=== PATIENT | female | born 1980 | race Caucasian/White ===

== ENCOUNTER 2018-09-30 19:57 | Inpatient (IN) | payer MEDICAID ==
[~2018-09-30] VITALS: Ht 160 cm; Wt 114.0 kg
[2018-09-30] MEDS ORDERED: ONDANSETRON (ODT) 4 MG TAB ODT STA (21:27)
[2018-09-30] MEDS ORDERED: HYDROCODONE/APAP (5/325) TAB PO ONE (21:30)
[2018-10-01] VITALS (18 sets, daily range): BP systolic 116–144; BP diastolic 65–89; PULSE 72–84; RESP 16–24; Ht 160 cm; Wt 114.0 kg
[2018-10-01] MEDS ORDERED: ONDANSETRON 4 MG INJ IV STA (01:51)
[2018-10-01] MEDS ORDERED: morphine 4 MG/ML VIAL IV STA (01:51)
--- NOTE | 2018-10-01 02:43 | ERD ---
ER Documentation Chief Complaint Chief Complaint LEFT SIDED PELVIC PAIN X 1 DAY, NO VAGINAL BLEEDING, HX OF CYSTS HPI 38-year-old female has been history of GERD presents for left sided pelvic pain x1 day. She states there is a history of ovarian cysts. She states that she has 8 out of 10 pain. She took some Tylenol and Motrin at home with only mild relief. She has some nausea. She denies vomiting. Denies diarrhea. She does admit to some dysuria. No prior similar symptoms. She denies fevers or chills. Denies chest pain or shortness of breath. Denies any vaginal bleeding. No other modifying factors noted, no other treatments tried at home. ROS All systems reviewed and are negative except as per history of present illness. Allergies Allergies: Coded Allergies: No Known Allergy (Unverified , 09/30/18) PMhx/Soc Medical and Surgical Hx: pt denies Medical Hx, pt denies Surgical Hx Hx Alcohol Use: No Hx Substance Use: No Hx Tobacco Use: No Smoking Status: Never smoker FmHx Family History: No coronary disease Physical Exam Vitals Vital Signs Date Temp Pulse Resp B/P (MAP) Pulse Ox O2 O2 Flow FiO2 Time Delivery Rate 10/01/18 61 18 135/82 98 Room Air 02:04 (99) 09/30/18 97.0 65 18 151/86 97 20:06 (107) Physical Exam Const: No acute distress Resp: Clear to auscultation bilaterally Cardio: Regular rate and rhythm, no murmurs Abd: Soft, non distended. Normal bowel sounds, no McBurney's point tenderness, no King sign, no rebound or guarding noted, there is left lower quadrant, left pelvic area tenderness to palpation Skin: No petechiae or rashes Back: No midline or flank tenderness Ext: No cyanosis, or edema Neur: Awake and alert Psych: Normal Mood and Affect Result Diagram: 09/30/18213509/30/182135 Results 24 hrs Laboratory Tests Test 09/30/18 21:26 09/30/18 21:27 09/30/18 21:36 POC Beta HCG, Qualitative NEGATIVE Bedside Urine pH (LAB) 7.0 Bedside Urine Protein (LAB) Trace Bedside Urine Glucose (UA) Negative Bedside Urine Ketones (LAB) Negative Bedside Urine Blood Negative Bedside Urine Nitrite (LAB) Negative Bedside Urine Leukocyte Esterase Trace (L White Blood Count 8.4 10^3/ul Red Blood Count 4.34 10^6/ul Hemoglobin 13.1 g/dl Hematocrit 39.0 % Mean Corpuscular Volume 89.9 fl Mean Corpuscular Hemoglobin 30.2 pg Mean Corpuscular 33.6 g/dl Hemoglobin Concent Red Cell Distribution Width 11.9 % Platelet Count 248 10^3/UL Mean Platelet Volume 9.0 fl Immature Granulocytes % 0.400 % Neutrophils % 51.8 % Lymphocytes % 36.2 % Monocytes % 8.7 % Eosinophils % 2.3 % Basophils % 0.6 % Nucleated Red Blood Cells % 0.0 /100WBC Immature Granulocytes # 0.030 10^3/ul Neutrophils # 4.4 10^3/ul Lymphocytes # 3.0 10^3/ul Monocytes # 0.7 10^3/ul Eosinophils # 0.2 10^3/ul Basophils # 0.1 10^3/ul Nucleated Red Blood Cells # 0.0 10^3/ul Urine Color YELLOW Urine Clarity SLIGHTLY CLOUDY Urine pH 6.0 Urine Specific [place] 1.030 Urine Ketones NEGATIVE mg/dL Urine Nitrite NEGATIVE mg/dL Urine Bilirubin NEGATIVE mg/dL Urine Urobilinogen 1+ mg/dL Urine Leukocyte Esterase TRACE Abbi/ul Urine Microscopic RBC 1 /HPF Urine Microscopic WBC 4 /HPF Urine Squamous Epithelial Cells FEW /HPF Urine Bacteria FEW /HPF Urine Hemoglobin NEGATIVE mg/dL Urine Glucose NEGATIVE mg/dL Urine Total Protein NEGATIVE mg/dl Sodium Level 140 mmol/L Potassium Level 3.9 mmol/L Chloride Level 106 mmol/L Carbon Dioxide Level 26 mmol/L Anion Gap 8 Blood Urea Nitrogen 20 mg/dl Creatinine 0.64 mg/dl Est Glomerular Filtrat > 60 mL/min Rate mL/min Glucose Level 104 mg/dl Calcium Level 9.5 mg/dl Total Bilirubin 0.4 mg/dl Direct Bilirubin 0.00 mg/dl Indirect Bilirubin 0.4 mg/dl Aspartate Amino Transf (AST/SGOT) 29 IU/L Alanine 65 IU/L Aminotransferase (ALT/SGPT) Alkaline Phosphatase 73 IU/L Total Protein 7.7 g/dl Albumin 4.2 g/dl Globulin 3.50 g/dl Albumin/Globulin Ratio 1.20 Lipase 89 U/L Current Medications Medications Dose Sig/[place] Start Time Status Last (Trade) Ordered Route PRN Stop Time Admin Dose Reason Admin 1 tab ONCE ONCE 09/30/18 DC 09/30/18 Acetaminophen PO 21:30 21:49 / 09/30/18 21:46 Hydrocodone Bitart ([place] (5/325)) Ondansetron 4 mg ONCE STAT 09/30/18 DC 09/30/18 HCl (Zofran ODT 21:27 21:49 Odt) 09/30/18 21:46 Morphine 4 mg ONCE STAT 10/01/18 DC 10/01/18 Sulfate IV 01:51 02:28 (morphine) 10/01/18 01:52 Ondansetron 4 mg ONCE STAT 10/01/18 DC 10/01/18 HCl (Zofran IV 01:51 02:28 Inj) 10/01/18 01:52 Cefazolin 50 ml @ PRE-OP ONCE 10/01/18 Sodium/ 100 mls/hr IVPB 03:00 Dextrose 10/01/18 03:29 Ondansetron 4 mg BRIDGE ORDER 10/01/18 HCl (Zofran PRN IV 03:00 Inj) NAUSEA/VOMITI 10/02/18 02:59 NG 650 mg ER BRIDGE 10/01/18 Acetaminophen PRN PO 03:00 (Tylenol .MILD PAIN 10/02/18 02:59 Tab) 1-3 OR TEMP Procedures/MDM Medical Decision Making: Differential diagnosis includes but not limited to acute gastritis, acute gastroenteritis, appendicitis, cholecystitis, pancreatitis, nephrolithiasis, pyelonephritis, ovarian torsion patient appeared in some distress on examination. There is left sided pelvic tenderness palpation ED course: Patient was given [place], morphine. There is mild improvement in symptoms. Labs: CBC showed no severe anemia, no elevated WBC to suggest infection CMP showed no electrolyte abnormalities, there was normal kidney and liver fun ction Lipase was normal Urine was negative UA was negative for infection Imaging: Pelvic ultrasound showed a left ovarian cyst about 8 cm Renal ultrasound was unremarkable, there is no hydronephrosis, no nephrolithiasis noted Given continued pain with pain medications and the large size of the left ovarian cyst and possibility of ovarian torsion, decision was made to consult [employer] call out operator [employer] Dr. Stephen was contacted. Patient was evaluated in the ER and decision was made to take patient to OR for exploratory laparotomy Departure Diagnosis: Primary Impression: Acute pain in female pelvis Condition: Serious LIDIAMARILEE EM Oct 01, 2018 02:43
--- NOTE | 2018-10-01 02:50 | HP ---
Date/Time of Note Date/Time of Note DATE: 10/01/18 TIME: 02:41 Assessment/Plan VTE Prophylaxis SCD applied (from Nsg): Yes Pharmacological prophylaxis: other (Will give postop) Lines/Catheters IV Catheter Type (from Nrsg): Saline Lock Assessment/Plan Assessment/Plan Left ovarian cyst measuring 8 cm suspected left ovarian torsion Plan for exploratory laparotomy, possible left ovarian cystectomy, possible left salpingo-oophorectomy All benefits and risks including but not limited to infection, bleeding which may require blood transfusion, trauma to other organs including bowel and bladder were discussed with the patient Patient completely understands her plan of care and agrees to proceed Result Diagram: 09/30/18213509/30/182135 Results 24hrs Laboratory Tests Test 09/30/18 21:26 09/30/18 21:27 09/30/18 21:36 POC Beta HCG, Qualitative NEGATIVE Bedside Urine pH (LAB) 7.0 Bedside Urine Protein (LAB) Trace H Bedside Urine Glucose (UA) Negative Bedside Urine Ketones (LAB) Negative Bedside Urine Blood Negative Bedside Urine Nitrite (LAB) Negative Bedside Urine Trace H Leukocyte Esterase (L White Blood Count 8.4 Red Blood Count 4.34 Hemoglobin 13.1 Hematocrit 39.0 Mean Corpuscular Volume 89.9 Mean Corpuscular Hemoglobin 30.2 Mean Corpuscular 33.6 Hemoglobin Concent Red Cell Distribution Width 11.9 Platelet Count 248 Mean Platelet Volume 9.0 Immature Granulocytes % 0.400 Neutrophils % 51.8 Lymphocytes % 36.2 Monocytes % 8.7 Eosinophils % 2.3 Basophils % 0.6 Nucleated Red Blood Cells % 0.0 Immature Granulocytes # 0.030 Neutrophils # 4.4 Lymphocytes # 3.0 H Monocytes # 0.7 Eosinophils # 0.2 Basophils # 0.1 Nucleated Red Blood Cells # 0.0 Urine Color YELLOW Urine Clarity SLIGHTLY CLOUDY A Urine pH 6.0 Urine Specific [place] 1.030 Urine Ketones NEGATIVE Urine Nitrite NEGATIVE Urine Bilirubin NEGATIVE Urine Urobilinogen 1+ H Urine Leukocyte Esterase TRACE A Urine Microscopic RBC 1 Urine Microscopic WBC 4 Urine Squamous FEW Epithelial Cells Urine Bacteria FEW A Urine Hemoglobin NEGATIVE Urine Glucose NEGATIVE Urine Total Protein NEGATIVE Sodium Level 140 Potassium Level 3.9 Chloride Level 106 Carbon Dioxide Level 26 Anion Gap 8 Blood Urea Nitrogen 20 Creatinine 0.64 Est Glomerular Filtrat > 60 Rate mL/min Glucose Level 104 Calcium Level 9.5 Total Bilirubin 0.4 Direct Bilirubin 0.00 Indirect Bilirubin 0.4 Aspartate Amino 29 Transf (AST/SGOT) Alanine 65 Aminotransferase (ALT/SGPT) Alkaline Phosphatase 73 Total Protein 7.7 Albumin 4.2 Globulin 3.50 H Albumin/Globulin Ratio 1.20 Lipase 89 HPI/ROS Admit Date/Time Admit Date/Time Hx of Present Illness 38-year-old 4 para 4 morbidly obese with last menstrual period September 24, 2018 who presents with chief complaint of severe left lower quadrant pain with the pain level of 10 out of 10 Patient reports a history of left ovarian cyst for 1 year. Although she reports severe sharp pain that began yesterday and has been gradually worsening Past obstetrical history significant for x4 and BTL ROS Constitutional: no complaints, improved Eyes: no complaints ENT: no complaints Respiratory: no complaints Cardiovascular: no complaints Gastrointestinal: no complaints Genitourinary: other (Left lower quadrant pain) Musculoskeletal: no complaints Skin: no complaints Neurologic: no complaints Endocrine: no complaints Lymphatic: no complaints Psychological: no complaints, nl mood/affect Immunologic: no complaints PMH/Family/Social Past Medical History Medical History: no pertinent history Coded Allergies: No Known Allergy (Unverified , 09/30/18) Past Surgical History PPBTL Family History Significant Family History: no pertinent family hx Social History Alcohol Use: none Smoking Status: Never smoker Exam/Review of Systems Vital Signs Vitals Vital Signs Date Temp Pulse Resp B/P (MAP) Pulse Ox O2 O2 Flow FiO2 Time Delivery Rate 10/01/18 61 18 135/82 98 Room Air 02:04 (99) 09/30/18 97.0 20:06 Exam Exam PROCEDURE: Pelvic ultrasound. CLINICAL INDICATION: Pelvic pain. TECHNIQUE: Multiple sonographic images of the pelvis were obtained utilizing a transabdominal and endovaginal technique. The images were reviewed on a PACS workstation. COMPARISON: None. FINDINGS: The uterus is visualized and measures 11.1 x 5.1 x 5.9 cm. No abnormal uterine mass is identified. The endometrial echo complex is homogeneous and measures 6.4 mm. There is no evidence for free fluid. The right ovary is not visualized. The left ovary measures 9.4 x 7.5 x 8.9 cm and demonstrates normal color flow. There is a hypoechoic cyst within the left ovary measuring 8.2 x 4.5 x 7.0 cm. No adnexal masses are identified. IMPRESSION: Left ovarian 8.2 cm cyst. Further evaluation by MRI or surgical consultation is recommended. Right ovary not visualized. .Vik Mai MD, Date Time Electronically viewed and signed by .Vik Mai MD, on 10/01/2018 00:52 .T/ CC: MARILEE MURILLO DO [id number] Constitutional: alert, oriented, well developed Psych: no complaints, nl mood/affect Head: normocephalic, atraumatic Eyes: nl conjunctiva, EOMI, nl lids, nl sclera, PERRL ENMT: nl external ears & nose, nl lips & teeth, nl nasal mucosa & septum Neck: supple, non-tender Respiratory: clear to auscultation, normal air movement Cardiovascular: regular rate and rhythm, nl pulses Gastrointestinal: soft, nl liver, spleen, non-tender Genitourinary - Female: other (Left lower quadrant pain) Musculoskeletal: nl extremities to inspection Extremities: normal pulses Neurological: RESEARCH CONSULTANT II-XII intact, nl mental status, nl speech, nl strength Skin: nl turgor; No rash or lesions Lymph: nl lymph nodes SADE HAYDEN MD Oct 01, 2018 02:50
[2018-10-01] MEDS ORDERED: ONDANSETRON 4 MG INJ IV PRN ×4 (03:00→07:00)
[2018-10-01] MEDS ORDERED: ACETAMINOPHEN 325 MG TAB PO PRN (03:00)
[2018-10-01] MEDS ORDERED: CEFAZOLIN 2 GM/50 ML (PMX) 50 ML IVPB ONE (03:00)
--- NOTE | 2018-10-01 03:59 | PREAC ---
Date/Time of Note Date/Time of Note DATE: 10/01/18 TIME: 03:58 Anesthesia Eval and Record Evaluation Time Pre-Procedure Interview DATE: 10/01/18 TIME: 03:58 Age 38 Sex female NPO: 8 hrs Preoperative diagnosis suspected left ovarian torsion Planned procedure exploratory laparotomy, left ovarian cystectomy, possible left salpingo- oophorectomy Past Medical History Past Medical History: Includes GI: GERD, Morbid obesity Surgery & Anesthesia Issues No known issue Meds Anticoagulation: No Beta Ashley within 24 hr: No Reason Beta Ashley not given: Pt. not on B-Ashley Current Medications Ondansetron HCl (Zofran Inj) 4 mg BRIDGE ORDER PRN IV NAUSEA/VOMITING; Start 10/01/18 at 03:00; Stop 10/02/18 at 02:59 Acetaminophen (Tylenol Tab) 650 mg ER BRIDGE PRN PO .MILD PAIN 1-3 OR TEMP; Start 10/01/18 at 03:00; Stop 10/02/18 at 02:59 Meds reviewed: Yes Allergies Coded Allergies: No Known Allergy (Unverified , 09/30/18) Allergies Reviewed: Yes Labs/Studies Labs Reviewed: Reviewed by anesthesiologist Result Diagram: 09/30/18213509/30/182135 Laboratory Tests 09/30/18 21:36 test: Negative Pre-procedure Exam Last vitals Vital Signs Date Temp Pulse Resp B/P (MAP) Pulse Ox O2 O2 Flow FiO2 Time Delivery Rate 10/01/18 61 18 135/82 98 Room Air 02:04 (99) 09/30/18 97.0 20:06 Airway: Adequate mouth opening, Adequate thyromental dist Mallampati: Mallampati II Teeth: Normal Lung: Normal Heart: Normal ASA Physical Status ASA physical status: 3 Emergency: E Planned Anesthetic General/MAC: ETT Nerve block: TAP (bilateral) Planned Pain Management Single shot nerve block, Parenteral pain med Pre-operative Attestations Prior to commencing anesthesia and surgery, the patient was re-evaluated, there was verification of: *The patient's identity *The results of appropriate recent lab work and preoperative vital signs *The above evaluation not changing prior to induction *Anesthetic plan, risk benefits, alternative and complications discussed with patient/family; questions answered; patient/family understands, accepts and wishes to proceed. TREVOR SWANN MD Oct 01, 2018 03:59
[2018-10-01] MEDS ORDERED: LIDOCAINE 2% (SDV) 5 ML INJ ONE (04:44)
[2018-10-01] MEDS ORDERED: SUCCINYLCHOLINE CHLORIDE 100 MG/5 ML SYG IV ONE (04:44)
[2018-10-01] MEDS ORDERED: ROCURONIUM 50 MG INJ ONE (04:44)
[2018-10-01] MEDS ORDERED: MIDAZOLAM 1 MG/ML 2 ML INJ ONE (04:44)
[2018-10-01] MEDS ORDERED: PROPOFOL 20 ML ONE (04:44)
[2018-10-01] MEDS ORDERED: ROPIVACAINE 0.5 % 30 ML VIAL ONE (04:45)
[2018-10-01] MEDS ORDERED: PROCHLORPERAZINE 10 MG INJ IV PRN (05:00)
[2018-10-01] MEDS ORDERED: EPHEDrine 25 MG/5 ML SYG IV PRN (05:00)
[2018-10-01] MEDS ORDERED: DIPHENHYDRAMINE 50 MG INJ IV PRN (05:00)
[2018-10-01] MEDS ORDERED: MEPERIDINE 25 MG INJ IV PRN (05:00)
[2018-10-01] MEDS ORDERED: LABETALOL HCL 20MG INJ IV PRN (05:00)
[2018-10-01] MEDS ORDERED: FENTAnyl 50 MCG/ML VIAL IV PRN ×3 (05:00)
[2018-10-01] MEDS ORDERED: hydrALAzine 20 MG INJ IV PRN (05:00)
[2018-10-01] MEDS ORDERED: HYDROmorphONE 1 MG/5 ML IV SYRINGE IV PRN ×2 (05:00)
[2018-10-01] MEDS ORDERED: ONDANSETRON 4 MG INJ ONE (05:31)
[2018-10-01] MEDS ORDERED: DEXAMETHASONE 4 MG/ML 5 ML INJ ONE (05:31)
[2018-10-01] MEDS ORDERED: FAMOTIDINE 20 MG INJ ONE (05:31)
[2018-10-01] MEDS ORDERED: SUGAMMADEX SODIUM 200 MG/2 ML VIAL IV ONE ×3 (06:14→06:31)
--- NOTE | 2018-10-01 06:52 | PAC ---
Date/Time of Note Date/Time of Note DATE: 10/01/18 TIME: 06:52 Post-Anesthesia Notes Post-Anesthesia Note Last documented vital signs Vital Signs Date Temp Pulse Resp B/P (MAP) Pulse Ox O2 O2 Flow FiO2 Time Delivery Rate 10/01/18 61 18 135/82 98 Room Air 02:04 (99) 09/30/18 97.0 20:06 Activity: WNL Respiratory function: WNL Cardiovascular function: WNL Mental status: Baseline Pain reasonably controlled: Yes Hydration appropriate: Yes Nausea/Vomiting absent: Yes Comments BP: 128/75 HR: 75 RR: 15 T: 97.9 SaO2: 100% TREVOR SWANN MD Oct 01, 2018 06:52
--- NOTE | 2018-10-01 06:56 | OPR ---
Date/Time of Note Date/Time of Note DATE: 10/01/18 TIME: 06:52 Operative Report Procedure Date: Oct 01, 2018 Preoperative Diagnosis Left ovarian cyst measuring 8 cm suspected for possible torsion Postoperative Diagnosis Multiloculated left paratubal cyst measuring 8 cm Operation/Procedure Performed Exploratory laparotomy, left salpingectomy, left paratubal cystectomy Surgeon see signature line [employer] Dr Rivers Anesthesia Type: general Anesthesiologist: TREVOR SWANN MD Estimated Blood Loss: 10 - 50 ml's Transfusion none Specimen Left fallopian tube and left paratubal cyst Grafts/Implants none Complications none Pt Condition Post Procedure: stable Disposition: PACU Procedure Description Findings; Normal-appearing right ovary and fallopian tube Multiloculated left paratubal cyst measuring 8 cm Normal-appearing left ovary Normal-appearing uterus and pelvic anatomy Details of surgery; Patient was taken to the operating room and after adequate amount of anesthesia was given patient was prepped and draped in normal sterile fashion 10 cm Pfannenstiel skin incision was made with a scalpel and the incision was carried through the underlying layer fascia with the scalpel Fascia was incised in the midline and extended bilaterally using Bovie Anterior edge of the fascia was grasped with [place] clamps and elevated and from the underlying layer of rectus muscles using Pink scissors Rectus muscles were in the midline and peritoneum was identified and entered manually without any incidents Peritoneal incision was extended bilaterally manually An Tushar retractor was placed to provide better visualization Upon inspection of the pelvis multiloculated left paratubal cyst was noted which was brought out of the incision site Multiloculated left paratubal cyst appeared to be containing clear fluid and initially the drainage of the fluid was proceeded Using 2 [place] clamps the base of the paratubal cyst and the left fallopian tube was clamped twice and suture ligated with 0 Vicryl suture twice Excellent hemostasis was confirmed The specimen was sent for pathology evaluation Irrigation of the pelvis was performed and hemostasis was reassured Tushar retractor was removed Peritoneal closure was proceeded with 2-0 Vicryl in running fashion Fascia closure proceeded with 0 Vicryl suture in running fashion Subcutaneous closure proceeded with 0 plain suture in continuous fashion Skin was closed with End-sorb sandrine and Dermabond All sponge lap needle counts were reported to be correct Patient tolerated procedure well and taken back to recovery room in a stable condition Total IV fluids 700 cc Urine output 100 cc EBL 25 cc SADE HAYDEN MD Oct 01, 2018 06:56
[2018-10-01] MEDS ORDERED: IBUPROFEN 600 MG TAB NGT PRN (07:00)
[2018-10-01] MEDS ORDERED: MAGNESIUM HYDROXIDE 30ML CUP PO PRN (07:00)
[2018-10-01] MEDS ORDERED: IBUPROFEN 800 MG TAB PO PRN (07:00)
[2018-10-01] MEDS ORDERED: SENNA/DOCUSATE NA (8.6MG/50MG) TAB PO PRN (07:00)
[2018-10-01] MEDS ORDERED: OXYCODONE/ACETAMINOPHEN (5/325) TAB PO PRN (07:00)
[2018-10-01] MEDS ORDERED: BISACODYL 10 MG SUPP PR PRN (07:00)
[2018-10-01] MEDS: HYDROmorphONE 1 MG/5 ML IV SYRINGE IV PRN ×2 (07:10→08:29)
[2018-10-01] MEDS: morphine 2 MG INJ IV PRN ×4 (08:46→20:25)
[2018-10-01] MEDS: CEFAZOLIN 1 GM/50 ML (PMX) 50 ML IVPB SCH ×2 (14:38→22:15)
[2018-10-01] MEDS ORDERED: ENOXAPARIN 40 MG/0.4 ML SYG SC SCH (21:00)
[2018-10-02] MEDS: morphine 2 MG INJ IV PRN (00:59)
[2018-10-02 03:33] VITALS: BP 132/62; PULSE 71; RESP 16
[2018-10-02] MEDS: CEFAZOLIN 1 GM/50 ML (PMX) 50 ML IVPB SCH (05:48)
[2018-10-02] MEDS: OXYCODONE/ACETAMINOPHEN (5/325) TAB PO PRN ×2 (06:02→10:52)
[2018-10-02 07:49] VITALS: BP 114/60; PULSE 65; RESP 18
--- NOTE | 2018-10-02 12:03 | DS ---
Date/Time of Note Date/Time of Note DATE: 10/02/18 TIME: 12:03 Discharge Summary Admission/Discharge Info Admit Date/Time Oct 01, 2018 at 02:50 Discharge Date/Time 10/02/2018 Discharge Diagnosis Left paratubal cyst torsion Patient Condition: Good Hospital Course uneventful Primary Care Provider Care Physician No Primary Pending Labs Laboratory Tests Test 10/02/18 05:44 White Blood Count 13.1 10^3/ul (4.8-10.8) Red Blood Count 4.19 10^6/ul (4.20-5.40) Hemoglobin 12.8 g/dl (12.0-16.0) Hematocrit 37.8 % (37.0-47.0) Mean Corpuscular Volume 90.2 fl (82.0-101.0) Mean Corpuscular Hemoglobin 30.5 pg (29.0-33.0) Mean Corpuscular Hemoglobin Concent 33.9 g/dl (32.0-37.0) Red Cell Distribution Width 12.1 % (11.5-14.5) Platelet Count 238 10^3/UL (140-415) Mean Platelet Volume 9.5 fl (7.4-10.4) Immature Granulocytes % 0.400 % (0.001-0.429) Neutrophils % 75.8 % (39.0-77.0) Lymphocytes % 15.7 % (15.0-51.0) Monocytes % 7.9 % (0.0-11.0) Eosinophils % 0.0 % (0.0-7.0) Basophils % 0.2 % (0.0-2.0) Nucleated Red Blood Cells % 0.0 /100WBC (0.0-0.0) Immature Granulocytes # 0.050 10^3/ul (0.0-0.031) Neutrophils # 10.0 10^3/ul (1.6-7.5) Lymphocytes # 2.1 10^3/ul (0.8-2.9) Monocytes # 1.0 10^3/ul (0.3-0.9) Eosinophils # 0.0 10^3/ul (0.0-0.5) Basophils # 0.0 10^3/ul (0.0-0.1) Nucleated Red Blood Cells # 0.0 10^3/ul (0.0-0.0) Sodium Level 141 mmol/L (135-144) Potassium Level 3.8 mmol/L (3.5-5.1) Chloride Level 103 mmol/L (97-110) Carbon Dioxide Level 27 mmol/L (21-31) Anion Gap 11 (5-13) Blood Urea Nitrogen 11 mg/dl (7-20) Creatinine 0.62 mg/dl (0.44-1.00) Est Glomerular Filtrat Rate mL/min > 60 mL/min (>60) Glucose Level 129 mg/dl (70-220) Calcium Level 9.0 mg/dl (8.4-10.2) Total Bilirubin 0.8 mg/dl (0.2-1.3) Direct Bilirubin 0.00 mg/dl (0.00-0.20) Indirect Bilirubin 0.8 mg/dl (0-1.1) Aspartate Amino Transf (AST/SGOT) 20 IU/L (15-46) Alanine Aminotransferase (ALT/SGPT) 51 IU/L (13-69) Alkaline Phosphatase 67 IU/L (42-121) Total Protein 7.4 g/dl (6.1-8.1) Albumin 3.9 g/dl (3.3-4.9) Globulin 3.50 g/dl (1.3-3.2) Albumin/Globulin Ratio 1.11 KAILASH OATES M.D. Oct 02, 2018 12:03
[2018-10-02 14:08] VITALS: BP 117/60; PULSE 64; RESP 16
== END 2018-10-02 16:33 | disposition home or self-care (01) | DRG 743 ==
LOC: FTE 19:57 → PP2 10-01 02:50
PROVIDERS: ADMIT Obstetrics & Gynecology Gynecology; ATTEND Obstetrics & Gynecology Gynecology
PROC: 0UT64ZZ Resection of Left Fallopian Tube, Percutaneous Endoscopic Approach (ICD-10-PCS; principal; 2018-10-01 04:30)
DX: N83.8 Other noninflammatory disorders of ovary, fallopian tube and broad ligament (principal); N83.522 Torsion of left fallopian tube
CPT/HCPCS: 36415; 76775; 76830; 76856; 80053; 81001; 81003; 81025; 83690; 85025; 86703; 86803; 87086; 88305; 96374; 96375; J0690; J1100; J1170; J1650; J2250; J2270; J2405; J2795; J3010